=== PATIENT | female | born 1990 | race Two or more races ===

== ENCOUNTER 2016-10-30 22:11 | Emergency (ER) | payer OTHER ==
[~2016-10-30] VITALS: Ht 175.3 cm; Wt 63.2 kg
[2016-10-30 22:21] VITALS: BP 118/79; PULSE 74; RESP 16; O2SAT 100
[2016-10-30 23:16] LABS: BASOPHILS % (AUTO) 0.3 % (0-3); EOSINOPHILS % (AUTO) 0.8 % (0-5); MONOCYTES % (AUTO) 8.2 % (4-12); Mean Corpuscular Hemoglobin 30.6 pg (27.0-35.0); Mean Corpuscular Volume 88.7 fL (81-100); NEUTROPHILS % (AUTO) 57.6 % (40-74); Platelet Count 244 bil/L (150-400)
[2016-10-30 23:27] LABS: Magnesium 1.8 mg/dL (1.6-2.6)
--- NOTE | 2016-10-31 00:33 | ED.REPORT ---
HPI-Abd Pain F Under 40 Date of Service Oct 31, 2016 ED Provider: Antonino Foss MD Patient is a 26 year old female with a history of endometriosis with prior endometrial ablation who presents to the ED with lower abdominal pain for the past 2 hours. She reports intermittent nausea for the past 2 weeks, before she developed abdominal pain this evening. She states that the pain is sharp, constant, and radiates into her back. She reports subjective fever and chills. She denies diarrhea, dysuria, hematuria, hematochezia, abnormal vaginal bleeding , or abnormal vaginal discharge. Patient is sexually active and LNMP was October 16. Nursing Notes Stated Complaint: APPENDICITIS Chief Complaint: Female Abdominal Pain Nursing Notes Reviewed: Yes Allergies: Coded Allergies: No Known Allergies (Verified Allergy, Unknown, 08/28/16) Scheduled PRN Hydrocodone-Acetaminophen 5-325 mg (Hydrocodone-Acetaminophen 5-325 mg) 1 Each Tablet 1 TABLET PO Q4H PRN PRN For Pain Ibuprofen (Ibuprofen) 600 Mg Tablet 600 MG PO QID PRN PRN For Pain General Time Seen by MD: 23:06 Chief Complaint Abdominal pain Hx Obtained From: Patient Arrived By: Walk-in Sudden in Onset?: No Onset Occurred: 1 - 4 hours ago Symptom Duration: Since onset Progression since Onset: Gradually worsening Location: : RLQ Quality: Painful, Sharp Severity: Current: Severe Severity: Maximum: Severe Recent Healthcare: No recent doctor visit, No recent hospitalization Similar Sx Previous: No Past Medical History Past Medical History Childhood varicella endometriosis Past Surgical History Polypectomy T&A endometrial ablation Reports: Tonsillectomy Smoking History Never Smoker Social History Alcohol Use: Denies alcohol use Drug Use: Denies drug use Other Social History: Good social support, , Local resident Ambulatory Status Independent Review of Systems Constitutional: Reports: Chills, Fever GI: Reports: Abdominal pain, Nausea, Denies: Diarrhea, Hematochezia, Vomiting Female: Denies: Dysuria, Hematuria, Vaginal bleeding - abnl, Vaginal discharge Complete sys rev & neg: except as marked. Physical Exam Initial Vital Signs Vital Signs (First) Date Time Temp Pulse Resp B/P Pulse Ox O2 Delivery O2 Flow Rate FiO2 10/30/16 22:21 36.2 74 16 118/79 100 10/31/16 05:25 Room Air Initial VS: Reviewed Head / Eyes: Atraumatic, Normocephalic, PERRL ENT: Conjunctiva normal, No scleral icterus Neck: Supple, Full range of motion Extremities: Vascular intact, Neuro intact Skin: Warm, Dry, No cyanosis Neurologic: Alert, Oriented, Nonfocal Psychiatric: Mood/affect normal, Behavior normal, Normal thought content General/Constitutional: Awake, Alert, No acute distress Respiratory / Chest: Breath sounds NL, Breath sounds = bilat, No respiratory distress, No rales, No rhonchi, No wheezing Cardiovascular: Heart rate NL, Regular rhythm, Heart sounds NL Abdomen: Soft, No rebound Tenderness/Guarding/Rebound: Positive: Tender LLQ... (Moderate), Tender RLQ... (Mild) Back: Painless range of motion Interpretation & Diagnostics Interpretation & Diagnostics: Urine : Negative US APPENDIX CONCLUSION: Moderate pelvic free fluid is nonspecific. The appendix is not identified. Acute appendicitis is not excluded. Normal ovary. Radiologist: Brit Salvador MD 10/31/2016 - 1:09:57 AM PST Lab Results Interpretation Result Diagram: 10/31/16 0440 10/30/16 2250 Test 10/30/16 22:50 10/30/16 23:59 10/31/16 04:40 White Blood Count 7.7th/mm3 (3.8-10.1) Red Blood Count 4.25mil/mm3 (3.90-5.20) Mean Corpuscular Volume 88.7fL (81-100) Mean Corpuscular Hemoglobin 30.6pg (27.0-35.0) Mean Corpuscular Hemoglobin Concent 34.5% (32.0-37.0) Red Cell Distribution Width 12.0% (12.3-15.4) Platelet Count 244bil/L (150-400) Neutrophils (%) (Auto) 57.6% (40-74) Lymphocytes (%) (Auto) 33.0% (14-46) Monocytes (%) (Auto) 8.2% (4-12) Eosinophils (%) (Auto) 0.8% (0-5) Basophils (%) (Auto) 0.3% (0-3) Sodium Level 137mEq/L (134-144) Potassium Level 3.5mEq/L (3.5-5.2) Chloride Level 97mEq/L (97-108) Carbon Dioxide Level 26mmol/L (18-29) Blood Urea Nitrogen 6mg/dL (6-20) Creatinine 0.53mg/dL (0.57-1.00) Estimat Glomerular Filtration Rate 200mL/min (>59) Glucose Level 97mg/dL (60-99) Calcium Level 9.4mg/dL (8.5-10.1) Magnesium Level 1.8mg/dL (1.6-2.6) Total Bilirubin 0.5mg/dL (0.0-1.2) Aspartate Amino Transf (AST/SGOT) 20U/L (0-50) Alanine Aminotransferase (ALT/SGPT) 14U/L (0-32) Alkaline Phosphatase 17U/L (25-150) Total Protein 7.5g/dL (6.4-8.4) Albumin 4.6g/dL (3.4-5.0) Lipase 22U/L (13-60) HCG Beta Subunit 0.500mIU/mL Urine Color Yellow (YELLOW) Urine Appearance Clear (CLEAR,HAZY) Urine pH 7.5 (5.0-8.0) Urine Specific G[place]ord 1.015 (1.003-1.035) Urine Protein Negativemg/dL (NEG,TRACE) Urine Glucose (UA) Negativemg/dL (NEGATIVE) Urine Ketones 15mg/dL (NEGATIVE) Urine Occult Blood Negative (NEGATIVE) Urine Nitrite Negative (NEGATIVE) Urine Bilirubin Negative (NEGATIVE) Urine Urobilinogen Normalmg/dL (NORMAL) Urine Leukocyte Esterase Negative (NEGATIVE) Urine RBC 0-2/hpf (0-2) Urine WBC 0-5/hpf (0-5) Urine Epithelial Cells Few/hpf (NONE-MOD) Urine Crystals None seen (NONE SEEN) Urine Bacteria None/hpf (NONE-FEW) Urine Hyaline Casts None/lpf (NONE) Urine Granular Casts None seen (NONE SEEN) Urine Waxy Casts None seen (NONE SEEN) Urine Red Blood Cell Casts None seen (NONE SEEN) Urine White Blood Cell Casts None seen (NONE SEEN) Urine Mucus None seen (None Seen) Urine Trichomonas None seen (NONE SEEN) Urine Yeast None (NONE SEEN) Urine Culture Reflexed Not indicated Hemoglobin 12.5g/dL (12.0-15.6) Hematocrit 36.4% (35.0-46.0) CT Abd / Pelvis Interpretation CONCLUSION: Mixed density pelvic free fluid versus hemoperitoneum. Presumed involuting cyst of the left ovary. Pelvic congestion, left side. Nonvisualized appendix. Beta-hCG correlation is recommended. Differential considerations would include [employer] abnormalities, most likely, though acute appendicitis is not excluded. Radiologist: Brit Salvador MD 10/31/2016 - 3:39:50 AM PST Study type: Abdominal CT IV contrast, Abdom CT oral contrast Interpretation / Wet Read by: Interpret - Radiologist Re-Eval/Medical Decision Med Decision/Clinical Course Med Decision/Clinical Course: 46-year-old for endometriosis presents with severe abdominal pain and is found to have free fluid on ultrasound. Appendicitis is not excluded by the exam. A CT scan with contrast again does not visualize the appendix well, but shows heterogeneous fluid consistent with hemoperitoneum, and suggestive of ruptured ovarian cyst. She also has large uterus and vasculature consistent with pelvic congestion. She is confirmed not both by blood and urine. CBC shows minimal drop over several hours from 13-12.5 g. White count is normal at 7000. She feels better after observation here. She declines pain meds and declines prescription for home. Referred to Dr. Brandon for close follow-up. Encouraged to return promptly if she becomes dizzy or any other new symptoms of concern. Source of Hx: Old records Re-Evaluation/Progress #1: Time of Eval: 01:39 Re-Evaluation/Progress Note: Rechecked the patient, who was informed of the results of her labs and ultrasound. Informed the patient that she will need to have a CT scan of her abdomen. All questions were addressed. Re-Evaluation/Progress #2: Time of Eval: 04:37 Patient Status: Condition improved Re-Evaluation/Progress Note: Rechecked the patient to discuss the results of her CT scan. Due to the CT findings, she should be seen by an [employer] SEPARATOR. Will draw her repeat H&H. Patient states that her pain is now resolved and she would like to return bethanie. Re-Evaluation/Progress #3: Time of Eval: 05:19 Patient Status: Condition improved Re-Evaluation/Progress Note: Repeat H&H is normal. Patient understands and agrees with the plan to be discharged home. Discharge instructions and follow-up discussed. All questions were addressed. Return to the ED warnings given. Counseled Regarding: Diagnosis, Lab results, Need for follow-up, When/why to return to ED Discharge & Departure Shift Change Sign-Out Response to Therapy: Improved Primary Impression: Ruptured ovarian cyst Additional Impressions: Hemoperitoneum Pelvic congestion Abdominal pain Abdominal location: right lower quadrant Qualified Code: R10.31 - Right lower quadrant pain Disposition: Home Discharge Condition All VS Reviewed: Yes Condition: Stable Patient Instructions: Acute Abdominal Pain (ED), Ovarian Cyst (DC) Additional Instructions: Your blood count is relatively stable. Beware, though, that you could bleed much more and become dizzy and weak. You should return immediately for any symptoms like that. Call your doctor this morning for close follow-up. They will have access to your scan results and blood results from today. Ibuprofen if needed for pain. Vicodin sparingly if needed for pain. Return if any immediate issues. Referrals: Radha Brandon MD (PCP) Scribe Attestation Portions of this note were transcribed by Catherine Canales. I, Dr. Foss personally performed the history, physical exam and medical decision-making; I reviewed and confirmed the accuracy of the information in the transcribed note. Signed by: Doreen Hernandez, 10/31/2016 0520 copies to: Radha Brandon MD, Christopher W MD Oct 31, 2016 00:33 Catherine Canales Oct 31, 2016 00:50
[2016-10-31 01:18] LABS: APPEARANCE,URINE CLEAR (CLEAR,HAZY); COLOR,URINE YELLOW (YELLOW); OCCULT BLOOD,URINE NEGATIVE (NEGATIVE); PH,URINE 7.5 (5.0-8.0); UROBILINOGEN,URINE NORMAL (NORMAL)
[2016-10-31] MEDS ORDERED: Iohexol 300 mg/mL 30 mL Inj PO ONE (01:45)
[2016-10-31] MEDS ORDERED: Ondansetron 2 mg/mL 2 mL Inj IVPUSH ONE (01:45)
[2016-10-31] MEDS ORDERED: HYDROmorphone 0.5 mg/0.5 mL iSecure Syringe IVPUSH PRN (01:45)
[2016-10-31] MEDS ORDERED: IBUP-1827 PO (05:15)
[2016-10-31] MEDS ORDERED: HYDR-4003 PO (05:15)
[2016-10-31 05:25] VITALS: BP 112/57; PULSE 56; RESP 24; O2SAT 99
--- NOTE | 2016-10-31 09:56 | DRSVH ---
PROCEDURE: CT ABDOMEN AND PELVIS WITH CONTRAST ([id number]) INDICATIONS: abdo pain free fluid TECHNIQUE: After the administration of intravenous contrast, 5 mm thick sections acquired from the diaphragm to the symphysis. 5 mm coronal and sagittal reformats were acquired. For radiation dose reduction, the following was used: automated exposure control, adjustment of mA and/or kV according to patient siz e. COMPARISON: None. FINDINGS: Image quality: Excellent. ABDOMEN: Lung bases: Lung bases are clear. Heart size is normal. Solid organs: Liver and spleen are normal in size and enhancement. Gallbladder is within normal [place] its. Biliary system is non dilated. Pancreas enhances normally. No adrenal nodules. Kidneys demon strate normal size and enhancement, without hydronephrosis. 2 mm nonobstructing left renal stone is n oted. Peritoneum and bowel: Bowel loops demonstrate normal wall thickness and caliber. No free air. Small amount of free fluid in the cul-de-sac of the pelvis which has intermediate density may be related t o ruptured hemorrhagic cyst, however other etiologies can't be excluded by CT imaging alone. The appe ndix is not definitely visualized. No inflammatory changes noted adjacent to the cecum. Nodes and vessels: No retroperitoneal or mesenteric adenopathy by size criteria. Aorta and inferior vena cava are normal in size. Miscellaneous: No ventral hernias. PELVIS: Genitourinary: Bladder wall thickness is normal. 1.4 cm involuting left adnexal cyst is noted. There is prominence of the periuterine vasculature. Miscellaneous: No inguinal hernias or adenopathy. Bones: No suspicious bony lesions. No vertebral body compression fractures. IMPRESSION: 1. The appendix is not directly visualized. While no secondary signs of appendicitis are identified, an early manifestation appendicitis cannot be excluded. 2. Small amount of intermediate density fluid in the pelvis with prominence of the periuterine vascul ature. Findings are nonspecific, however findings can be associated with early . Please jose elate with beta-hCG. 3. 2 mm nonobstructing left renal stone. Dictated by: Olga Williamson MD, PhD on 10/31/2016 at 9:55 Approved by: Olga Williamson MD, PhD on 10/31/2016 at 9:55
--- NOTE | 2016-10-31 10:02 | DRSVH ---
PROCEDURE: US APPENDIX INDICATIONS: rlq for poss appy TECHNIQUE: Real-time focused scanning was performed of the abdomen with attention to the appendix, with image do cumentation. COMPARISON: [facility], CT, CT ABD PELVIS W CON, 10/31/2016, 3:02. FINDINGS: Limited evaluation of the right lower quadrant demonstrates no abnormalities. The appendix is not cl early identified sonographically. No abnormal fluid collections or masses seen. Moderate amount of free fluid. IMPRESSION: 1. Appendix is not visualized and cannot be evaluated. 2. Moderate non-hemorrhagic pelvic fluid of unclear etiology. Correlate clinically. Dictated by: Benny Hernandez RRA Interpreted: Olga Wililamson MD on 10/31/2016 at 10:02 Transcribed by: HOMA on 10/31/2016 at 10:02 Approved by: Olga Williamson MD, PhD on 10/31/2016 at 16:34
== END 2016-10-31 05:16 | disposition home or self-care (01) ==
LOC: SED 22:11
DX: N83.209 Unspecified ovarian cyst, unspecified side (principal); K66.1 Hemoperitoneum; N94.89 Other specified conditions associated with female genital organs and menstrual cycle; R10.31 Right lower quadrant pain
CPT/HCPCS: 36415; 74177; 76705; 80053; 81000; 81025; 83690; 83735; 84702; 85014; 85018; 85025; 96374; 99285; J2405; Q9967